=== PATIENT | female | born 1930 | race American Indian/Alaskan Native ===

== ENCOUNTER 2017-12-20 20:34 | Emergency (ER) | payer MEDICARE ==
[2017-12-20 20:53] VITALS: BMI 25.3
[2017-12-20] MEDS ORDERED: Sodium Chloride 0.9% 500 ML IV STA (20:57)
--- NOTE | 2017-12-20 20:58 | ED PDOC ---
Arrival/HPI - General Chief Complaint: Headache Time Seen by Provider: 12/20/17 20:53 Historian: Patient, Family (daughter) - History of Present Illness Narrative History of Present Illness (Text): 12/20/17 20:56 pt p/w + < 1 day onset of elevated BP (> 200/80, when measured at home); pt states she checked her BP because she felt mild frontal head discomfort/pressure ; + slight sob; otherwise without any medical complaints; pt states no fever/ chills/sweats, no cp/palpitations, no abd pain, no n/v, no numbness/tingling, no urinary/bowel changes, no urinary/bowel changes, no fall/trauma/sick contact , no travel professional denied slurr speech pt denied vision changes, no gait changes pt denied neck pain pt is here for further eval pt's without other complaints. PCP: Dr Wood Cards: Dr Stauffer Time/Duration: 24 hours Symptom Onset: Sudden Symptom Course: Unchanged Quality: Aching Severity Level: Mild Activities at Onset: Rest Context: Home Past Medical History - Provider Review Nursing Documentation Reviewed: Yes - Travel History Have you recently traveled outside [place] w/in the past 3 mons?: No - Past History Past History: No Previous - Infectious Disease Hx of Infectious Diseases: None - Tetanus Immunization Tetanus Immunization: Unknown - Reproductive Menopause: Yes Currently : No - Cardiac Hx Hypertension: Yes - Pulmonary Hx Respiratory Disorders: No - Neurological Hx Dizziness: Yes (vertigo) - HEENT Hx HEENT Disorder: No Hx Glaucoma: Yes - Renal Hx Renal Disorder: No - Endocrine/Metabolic Hx Endocrine Disorders: No - Hematological/Oncological Hx Blood Disorders: No - Integumentary Hx Dermatological Disorder: No - Musculoskeletal/Rheumatological Hx Arthritis: Yes - Gastrointestinal Hx Diverticulitis: Yes Other/Comment: abdominal mass - Genitourinary/Gynecological Hx Genitourinary Disorders: No - Psychiatric Hx Psychophysiologic Disorder: No Hx Anxiety: Yes Hx Depression: No Hx Emotional Abuse: No Hx Physical Abuse: No Hx Substance Use: No - Past Surgical History Past Surgical History: No Previous - Surgical History Hx Coronary Stent: Yes (1) Other/Comment: abdominal surgery, colosotmy placement and reversal due to diverticulitis 2014 - Suicidal Assessment Feels Threatened In Home Enviroment: No Family/Social History - Physician Review Nursing Documentation Reviewed: Yes Family/Social History: No Known Family HX Smoking Status: Never Smoked Hx Alcohol Use: No Hx Substance Use: No Hx Substance Use Treatment: No Allergies/Home Meds Allergies/Adverse Reactions: Allergies acetaminophen [From Tylenol-Codeine] Allergy (Verified 12/20/15 08:10) atorvastatin calcium [From Lipitor] Allergy (Verified 12/20/15 08:10) ciprofloxacin [From Cipro] Allergy (Verified 12/20/15 08:10) ciprofloxacin HCl [From Cipro] Allergy (Verified 12/20/15 08:10) clonidine HCl [From Catapres] Allergy (Verified 12/20/15 08:10) clopidogrel bisulfate [From Plavix] Allergy (Verified 12/20/15 08:10) codeine phosphate [From Tylenol-Codeine] Allergy (Verified 12/20/15 08:10) colesevelam HCl [From WelChol] Allergy (Verified 12/20/15 08:10) diltiazem HCl [From Cardizem] Allergy (Verified 12/20/15 08:10) enalapril Allergy (Verified 12/20/15 08:10) ezetimibe [From Zetia] Allergy (Verified 12/20/15 08:10) isosorbide Allergy (Verified 12/20/15 08:10) lisinopril Allergy (Verified 12/20/15 08:10) olmesartan medoxomil [From Benicar] Allergy (Verified 12/20/15 08:10) pravastatin Allergy (Verified 12/20/15 08:10) rosuvastatin calcium [From Crestor] Allergy (Verified 12/20/15 08:10) sertraline HCl [From Zoloft] Allergy (Verified 12/20/15 08:10) simvastatin [From Zocor] Allergy (Verified 12/20/15 08:10) spironolactone Allergy (Verified 12/20/15 08:10) tramadol Allergy (Verified 12/20/15 08:10) valdecoxib [From Bextra] Allergy (Verified 12/20/15 08:10) Home Medications: Home Meds Medication Instructions Recorded Confirmed Latanoprost 0.005% Opht [Xalatan 1 drp OP HS 03/31/14 12/20/17 Opht] Terazosin HCl 2 mg PO TID 03/31/14 12/20/17 Aspirin [Adult Low Dose Aspirin EC] 81 mg PO DAILY 12/20/15 12/20/17 Cholecalciferol (Vitamin D3) 2,000 unit PO DAILY 12/20/15 12/20/17 [Vitamin D3] Review of Systems - Review of Systems Constitutional: Fatigue Eyes: Normal ENT: Normal Respiratory: SOB Cardiovascular: Normal. absent: Chest Pain, Palpitations Gastrointestinal: Normal Genitourinary Female: Normal Musculoskeletal: Normal Skin: Normal Neurological: Headache, Other (lightheadedness) Endocrine: Normal Hemo/Lymphatic: Normal Psychiatric: Normal Physical Exam Vital Signs Reviewed: Yes Vital Signs Temp Pulse Resp BP Pulse Ox 12/20/17 22:18 93 H 18 147/65 100 12/20/17 20:59 98.1 F 88 18 196/91 H 100 Temperature: Afebrile Blood Pressure: Hypertensive Pulse: Regular Respiratory Rate: Normal Appearance: Positive for: Well-Appearing, Non-Toxic, Comfortable, Other (alert/ awake, GCS = 15, oriented x 3, NAD, comfortable, cooperative, answering questions with ease) Pain Distress: None Mental Status: Positive for: Alert and Oriented X 3 - Systems Exam Head: Present: Atraumatic, Normocephalic, Other (mild bi-temporal wasting) Pupils: Present: PERRL, Other (no nystagmus, no photophobia, sclera anicteric) Extroacular Muscles: Present: EOMI Conjunctiva: Present: Normal Ears: Present: Normal Mouth: Present: Moist Mucous Membranes, Other (fair dentitions, no drooling/ stridor, no exudate/lesions, no dyphonia) Pharnyx: Present: Normal Nose (External): Present: Atraumatic Nose (Internal): Present: Normal Inspection Neck: Present: Normal Range of Motion, Trachea Midline, Other (intact ROM, no midline tenderness, no step off). No: Meningeal Signs, MIDLINE TENDERNESS Respiratory/Chest: Present: Clear to Auscultation, Good Air Exchange, Other Cardiovascular: Present: Regular Rate and Rhythm, Normal S1, S2. No: Murmurs Abdomen: Present: Normal Bowel Sounds, Other (well nourished female, no focal tenderness, no mayo's sign, no mcburney's point tenderness, no masses/rebound/ guarding/rigidity) Back: Present: Normal Inspection. No: CVA Tenderness, Midline Tenderness Upper Extremity: Present: Normal Inspection, Normal ROM, NORMAL PULSES, Neurovascularly Intact, Capillary Refill < 2s Lower Extremity: Present: Normal Inspection, NORMAL PULSES, Normal ROM, Neurovascularly Intact Neurological: Present: GCS=15, CN II-XII Intact, Speech Normal, Other (no slurr speech, no facial asymmetries; NIH stroke scale ~ 0) Skin: Present: Warm, Normal Color, Other (cap refill < 1 sec, no ulcerations, no petechiae, no rashes/lesions) Psychiatric: Present: Alert, Oriented x 3, Normal Insight, Normal Concentration Medical Decision Making ED Course and Treatment: 12/20/172054 Impression: elevated BP i have consider all the differential diagnosis regarding pt's chief medical complaints/clinical findings, including but are not limited to: elevated BP A/P: elevated BP - labs - ekg - ct - iv - supportive care - observe/reevaluation 12/20/17 22:15 pt is doing well pt is comfortable NIH stroke scale ~ 0 pt remained at baseline mental status BP is much improved, 140s/70s 12/20/17 22:[address] Shah, fabrication welder for Dr Stauffer, made aware of pt's medical complaint/presentation, agrees with ED mgt/txt/dx, and agrees pt can be recommended for outpt f/u, no additions/changes to pt's medication lists for now due to slightly ABNL UA, however, pt without any urinary complaints, potential for collection error/contamination is high, will recommend pt to maintain hydration and await for urine culture in 1-2 days for further diagnosis (of UTI) pt expressed understanding and agreement pt/family are made aware of pt's medical results pt is encouraged fluids pt is encouraged maintaining a BP diary pt will f/u as directed pt will be discharged home Re-evaluation Time: 22:35 Reassessment Condition: Improved - Lab Interpretations Lab Results: 12/20/17 21:20 12/20/17 21:20 Lab Results 12/20/17 21:30: Urine Color Yellow, Urine Appearance Sl cloudy, Urine pH 6.5, Ur Specific [place] 1.010, Urine Protein Negative, Urine Glucose (UA) Negative, Urine Ketones Negative, Urine Blood Small H, Urine Nitrate Negative, Urine Bilirubin Negative, Urine Urobilinogen 0.2, Ur Leukocyte Esterase Small H, Urine RBC 2 - 5, Urine WBC 20 - 25, Ur Epithelial Cells 6 - 8, Urine Bacteria Mod 12/20/17 21:20: WBC 4.1 L, RBC 3.56, Hgb 11.3 L, Hct 33.3 L, MCV 93.5, MCH 31.7 , MCHC 33.9, RDW 13.3, Plt Count 178, MPV 10.9, Gran % 45.2 L, Lymph % (Auto) 38.6 H, [place] % (Auto) 9.1 H, Eos % (Auto) 6.6 H, Baso % (Auto) 0.5, Gran # 1.84 , Lymph # (Auto) 1.6, [place] # (Auto) 0.4, Eos # (Auto) 0.3, Baso # (Auto) 0.02 12/20/17 21:20: Sodium 141, Potassium 4.3, Chloride 106, Carbon Dioxide 24, Anion Gap 16, BUN 21, Creatinine 1.0, Est GFR ( Amer) > 60, Est GFR (Non- Af Amer) 52, Random Glucose 85, Calcium 9.4, Total Bilirubin 0.6, AST 36, ALT 21 , Alkaline Phosphatase 48, Total Protein 7.2, Albumin 4.2, Globulin 2.9, Albumin /Globulin Ratio 1.5 I have reviewed the lab results: Yes Interpretation: Abnormal lab values (? abnl UA, otherwise WNL labs) - RAD Interpretation Narrative RAD Interpretations (Text): 12/20/17 22:25 [facility] Division of Radiology [address] [address] Tel. no. Patient Name: AMBROSIO GONZALEZ Pt. Address: [address] [place] [address] Rec #: [id number] [place] [address]: Miguel Angel Diaz MD Pt Order Location: ED : 1930 Female Age: 87 Order #: [id number] Reason for exam: frontal head discomfort, elevated BP CT Scan HEAD W/O CONTRAST Exam Date: 12/20/17 This imaging exam was performed at [facility] EXAM: CT Head Without Intravenous Contrast CLINICAL HISTORY: 87 years old, female; Pain; Headache; Additional info: Frontal head discomfort, elevated BP TECHNIQUE: Axial computed tomography images of the head/brain without intravenous contrast. All CT scans at this facility use one or more dose reduction techniques, viz.: automated exposure control; ma/kV adjustment per patient size (including targeted exams where dose is matched to indication; i.e. head); or iterative reconstruction technique. Coronal and sagittal reformatted images were created and reviewed. COMPARISON: No relevant prior studies available. FINDINGS: Brain: Mild atrophy. No intracranial hemorrhage. No mass. No definite edema. Ventricles: No hydrocephalus. Bones/joints: No acute fracture. Soft tissues: Unremarkable. Vasculature: Minimal atherosclerotic disease of intracranial arteries. Sinuses: Scattered minimal mucosal thickening of ethmoid sinuses. Mastoid air cells: No mastoid effusion. Orbits: Unremarkable as visualized. IMPRESSION: 1. No definite acute intracranial abnormality. 2. Incidental/non-acute findings are described above. Dictated By: Robb Wayne MD Dictated Date/Time: 12/20/172217 Signed By: Robb Wayne MD Date Signed: 2217 Transcribed By: ELLI Transcribe Date/Time : 12/20/17221712/20/17 22:50 cxr - NAD Radiology Orders: 12/20/17 20:54 HEAD W/O CONTRAST [CT] Stat CHEST TWO VIEWS (PA/LAT) [RAD] Stat Contract Negotiation Specialist: ED Physician, Radiologist - EKG Interpretation EKG Interpretation (Text): 12/20/17 21:23 NSR at 65 bpm, LAD, no ectopy, inverted T in leads I, L, V4-6, biphasic T in leads F/V3, no st changes, ABNL EKG; unchanged compare with old ekg 12/2015 Interpreted by ED Physician: Yes Type: 12 lead EKG Comparison: Similar to previous EKG - Medication Orders Current Medication Orders: Hydralazine HCl (Apresoline) 10 mg IVP STAT WADE Last Admin: 12/20/17 21:29 Dose: 10 mg IVP Administration Document 12/20/17 21:29 CNR (Rec: 12/20/17 21:29 CNR [id number]) Charges for Administration # of IVP Administrations 1 Discontinued Medications Sodium Chloride (Sodium Chloride 0.9%) 500 mls @ 999 mls/hr IV .Q31M STA Stop: 12/20/17 21:27 Last Admin: 12/20/17 21:29 Dose: 999 mls/hr eMAR Start Stop Document 12/20/17 21:29 CNR (Rec: 12/20/17 21:29 CNR [id number]) Intravenous Solution Start Date 12/20/17 Start Time 21:29 Metoclopramide HCl (Reglan) 10 mg IVP STAT STA Stop: 12/20/17 20:57 Last Admin: 12/20/17 21:29 Dose: 10 mg IVP Administration Document 12/20/17 21:29 CNR (Rec: 12/20/17 21:29 CNR [id number]) Charges for Administration # of IVP Administrations 1 NIHSS Stroke Scale 3 - Date/Time Evaluation Performed Date Performed: 12/20/17 Time Performed: 20:54 When Was NIHSS Performed: Baseline - How Severe is the Stroke Level of Consciousness: 0=Alert LOC to Questions: 0=Both comments correct LOC to commands: 0=Obeys both correctly Best Gaze: 0=Normal Visual: 0=No visual loss Facial: 0=Normal Motor Arm - Left: 0=No drift Motor Arm - Right: 0=No drift Motor Leg - Left: 0=No drift Motor Leg - Right: 0=No drift Limb Ataxia: 0=Absent Sensory: 0=Normal Best Language: 0=No aphasia Dysarthia: 0=Normal articulation Extinction & Inattention (Neglect): 0=Normal, no object Score: 0 Disposition/Present on Arrival - Present on Arrival Any Indicators Present on Arrival: No History of DVT/PE: No History of Uncontrolled Diabetes: No Urinary Catheter: No History of Decub. Ulcer: No History Surgical Site Infection Following: None - Disposition Have Diagnosis and Disposition been Completed?: Yes Diagnosis: Elevated blood pressure reading Disposition: HOME/ ROUTINE Disposition Time: 22:38 Patient Plan: Discharge Patient Problems: Current Active Problems Problem Status Onset Elevated blood pressure reading Acute Condition: STABLE Discharge Instructions (ExitCare): Blood Pressure Testing and Measurement, High Blood Pressure (DC) Print Language: IRISH Additional Instructions: Make sure to see your doctor in 1-2 days Make sure to see Dr Stauffer this week DRINK PLENTY OF FLUIDS encourage you to KEEP A BLOOD PRESSURE DIARY (once in the morning and once before you go to sleep) and bring it to your doctor take your medications as prescribed RETURN TO ED IF worse pain, cant breath, persistent vomiting, high fever >101- 102 for hours, altered behavior, slurr speech, facial changes, focal weakness ( arm/leg or both), unable to urinate, heavy/persistent bleeding, passing out, chest pain, or other medical emergencies Referrals: Freeman Cummings MD [Primary Care Provider] - Follow up with primary Shankar Stauffer MD [Staff Provider] - Follow up with primary Forms: [employer] (Croatian)
[2017-12-20 21:01] VITALS: RESP 18; TEMP 98.1; O2SAT 100
[2017-12-20 21:40] LABS: BASO # 0.02 K/mm3 (0.0-2.0); BASO % 0.5 % (0.0-3.0); EOS # 0.3 (0.0-0.7); EOS % 6.6 % (1.5-5.0); GRAN # 1.84 (1.4-6.5); GRAN % 45.2 % (50.0-68.0); HEMOGLOBIN 11.3 g/dL (12.0-16.0); LYMPH # 1.6 (1.2-3.4); LYMPH % 38.6 % (22.0-35.0); MEAN CELL VOLUME 93.5 fl (80.0-105.0); MEAN CORPUSCULAR HEMOGLOBIN 31.7 pg (25.0-35.0); MEAN CORPUSCULAR HGB CONC 33.9 g/dl (31.0-37.0); MEAN PLATELET VOLUME 10.9 fl (7.0-11.0); MONO # 0.4 (0.1-0.6); MONO % 9.1 % (1.0-6.0); RBC 3.56 10^6/uL (3.5-6.1); RED CELL DISTRIBUTION WIDTH 13.3 % (11.5-14.5); WHITE BLOOD COUNT 4.1 10^3/ul (4.5-11.0)
[2017-12-20 21:46] LABS: ALB/GLOB RATIO 1.5 (1.1-1.8); ALBUMIN 4.2 g/dL (3.0-4.8); CALCIUM 9.4 mg/dL (8.4-10.5); GFR AFRICAN-AMERICAN > 60; GFR NON-AFRICAN AMERICAN 52
[2017-12-20 21:46] LABS: PH,URINE 6.5 (4.7-8.0); URINE BILIRUBIN NEGATIVE (NEGATIVE); URINE BLOOD SMALL (NEGATIVE); URINE GLUCOSE (UA) NEGATIVE (NEGATIVE); URINE LEUKOCYTE ESTERASE SMALL Leu/uL (NEGATIVE); URINE PROTEIN NEGATIVE mg/dL (<30 mg/dL); URINE UROBILINOGEN 0.2 E.U./dL (<1 E.U./dL)
[2017-12-20 21:48] LABS: URINE COLOR YELLOW (YELLOW)
[2017-12-20 21:59] LABS: URINE APPEARANCE SL CLOUDY (CLEAR); URINE WBC 20 - 25 /hpf (0-6)
[2017-12-20 22:00] LABS: URINE BACTERIA MOD (NEG)
[2017-12-20 22:10] LABS: ALT/SGPT 21 U/L (7-56); AST/SGOT 36 U/L (14-36); BLOOD UREA NITROGEN 21 mg/dL (7-21)
[2017-12-20 22:19] VITALS: BP 147/65; PULSE 93
--- NOTE | 2017-12-20 22:19 | CT ---
EXAM: CT Head Without Intravenous Contrast CLINICAL HISTORY: 87 years old, female; Pain; Headache; Additional info: Frontal head discomfort, elevated BP TECHNIQUE: Axial computed tomography images of the head/brain without intravenous contrast. All CT scans at this facility use one or more dose reduction techniques, viz.: automated exposure control; ma/kV adjustment per patient size (including targeted exams where dose is matched to indication; i.e. head); or iterative reconstruction technique. Coronal and sagittal reformatted images were created and reviewed. COMPARISON: No relevant prior studies available. FINDINGS: Brain: Mild atrophy. No intracranial hemorrhage. No mass. No definite edema. Ventricles: No hydrocephalus. Bones/joints: No acute fracture. Soft tissues: Unremarkable. Vasculature: Minimal atherosclerotic disease of intracranial arteries. Sinuses: Scattered minimal mucosal thickening of ethmoid sinuses. Mastoid air cells: No mastoid effusion. Orbits: Unremarkable as visualized. IMPRESSION: 1. No definite acute intracranial abnormality. 2. Incidental/non-acute findings are described above.
--- NOTE | 2017-12-21 08:22 | RAD ---
HISTORY: COMPARISON: 12/29/2015 TECHNIQUE: Chest PA and lateral FINDINGS: LINES AND TUBES: None. LUNG AND PLEURA: The lungs are well inflated and clear. HEART AND MEDIASTINUM: The heart is not enlarged. There is unfolding of the aorta. Atherosclerotic aortic arch calcifications are present. The hilar and mediastinal contours are within normal limits. SKELETAL STRUCTURES: The bony structures are within normal limits for the patient's age. VISUALIZED UPPER ABDOMEN: Normal. OTHER FINDINGS: None. IMPRESSION: No active pulmonary disease.
--- NOTE | 2017-12-21 09:12 | CARD ---
APPROVED REPORT EKG Measurement Heart [id number] 192P [id number] <Conclusion> Normal sinus rhythm Left axis deviation LVH by voltage QS in V1, pssible septal NH, old STTW changes c/w ischemia No change
== END 2017-12-20 22:57 | disposition home or self-care (01) ==
LOC: ED 20:34
DX: I10 Essential (primary) hypertension (principal)
CPT/HCPCS: 70450; 71046; 80053; 81001; 85025; 87086; 93005; 96374; 96375; 99283; J0360; J2765; J7040